=== PATIENT | male | born 2005 | race Caucasian/White ===

== ENCOUNTER 2024-08-02 03:19 | Emergency (ER) | payer MEDICAID ==
[~2024-08-02] VITALS: Ht 170.2 cm; Wt 73.0 kg
[2024-08-02 03:32] VITALS: O2SAT 100
[2024-08-02 08:21] LABS: CHLORIDE 104 mEq/L (98-107); POTASSIUM 3.8 mEq/L (3.5-5.1); SODIUM 137 mEq/L (136-145)
[2024-08-02 08:22] LABS: CALCIUM 9.5 mg/dL (8.7-10.4); CARBON DIOXIDE 26 mEq/L (21-32)
[2024-08-02 08:27] LABS: GLUCOSE 90 mg/dL (70-105); UREA NITROGEN BLOOD 9 mg/dL (9-23)
[2024-08-02 08:30] LABS: TROPONIN I HIGH SENSITIVITY < 4 ng/L (3.0-53)
[2024-08-02 08:33] LABS: BASOPHILS % 0.3 % (0.0-2.0); HEMATOCRIT. 37.8 % (42.0-52.0); HEMOGLOBIN. 12.5 g/dL (14.0-18.0); LYMPHOCYTES % 18.7 % (20.0-50.0); MEAN CORPUSCULAR HEMOGLOBIN 28.7 pg (28.0-32.0); MEAN CORPUSCULAR HGB CONC 32.9 g/dL (31.0-37.0); MEAN PLATELET VOLUME 7.7 fl (7.4-10.4); PLATELET 306 x1000/uL (130-400); RED BLOOD CELL COUNT 4.35 mill/uL (4.7-6.1); RED CELL DISTRIBUTION WIDTH 15.1 % (11.6-14.6); WHITE BLOOD COUNT 11.6 x1000/uL (4.5-11.0)
[2024-08-02] MEDS: KETOROLAC 30MG/ML VIAL IM ONE (09:27)
[2024-08-02] MEDS: CEFTRIAXONE SODIUM 1G VIAL IM ONE (09:28)
[2024-08-02] MEDS ORDERED: DOXY100T2 MT (16:03)
[2024-08-02] MEDS ORDERED: AZIT250T MT (16:03)
[2024-08-02] MEDS ORDERED: NAPR500T7 MT (16:04)
[2024-08-02 16:33] VITALS: BP 112/59; PULSE 70; RESP 18; TEMP 36.61404; O2SAT 100
== END 2024-08-02 16:34 | disposition home or self-care (01) ==
LOC: ER 03:19 → EDBEDREQ 10:15 → EDBEDREQTM 10:15 → ER 16:34
DX: J18.9 Pneumonia, unspecified organism (principal)
CPT/HCPCS: 80048; 85025; 84484; 36415; 71045; 71250; 93005; 96372; 99285; J0696; J1885; Z7610 ×2